=== PATIENT | male | born 1995 | race Caucasian/White ===

== ENCOUNTER 2017-05-06 13:40 | Emergency (ER) | payer OTHER ==
[2017-05-06 14:34] VITALS: BP 117/61
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
== END 2017-05-06 15:30 | disposition home or self-care (01) ==
LOC: UCCORT 13:40
DX: M62.830 Muscle spasm of back (principal)
CPT/HCPCS: 99212; G0463

== ENCOUNTER 2017-10-12 18:18 | Emergency (ER) | payer BC, OTHER ==
[2017-10-12 18:49] VITALS: BP 129/63
[2017-10-12] MEDS ORDERED: cefTRIAXone VIAL(*) 250 MG VIAL IM ONE (19:53)
[2017-10-12] MEDS ORDERED: Azithromycin TAB* 250 MG PO ONE (19:53)
--- NOTE | 2017-10-12 19:55 | ED ---
GI/ HPI - HPI Summary HPI Summary: 21 yr old male who states one of his girlfriends told him that she tested positive for chlamydia. He states that he has not had intercourse with her in about a month. he has no discharge, no dysuria, no testicular or scrotal pain. he feels fine otherwise. He does not want HIV testing. - History of Current Complaint Chief Complaint: UCGeneralIllness Time Seen by Provider: 10/12/17 19:46 Stated Complaint: PERSONAL Pain Intensity: 0 - Allergy/Home Medications Allergies/Adverse Reactions: Allergies Allergy/AdvReac Type Severity Reaction Status Date / Time No Known Allergies Allergy Verified 10/12/17 18:45 Home Medications: Home Medications NK [No Home Medications Reported] 10/12/17 [History Confirmed 10/12/17] PMH/Surg Hx/FS Hx/Imm Hx Endocrine/Hematology History: Denies: Hx Diabetes Cardiovascular History: Denies: Hx Hypertension, Hx Pacemaker/ICD Respiratory History: Denies: Hx Asthma Sensory History: Denies: Hx Hearing Aid Psychiatric History: Denies: Hx Panic Disorder Infectious Disease History: No Infectious Disease History: Denies: Traveled Outside the [place] in Last 30 Days - Family History Known Family History: Positive: None - Social History Occupation: Employed Full-time Alcohol Use: Rare Alcohol Amount: every other day Substance Use Type: Reports: None Smoking Status (MU): Never Smoked Tobacco Review of Systems Constitutional: Negative Positive: other - exposure to STD. Negative: burning, dysuria, discharge, frequency, incontinence, pain, urgency All Other Systems Reviewed And Are Negative: Yes Physical Exam Triage Information Reviewed: Yes Vital Signs On Initial Exam: Initial Vitals Temp Pulse Resp BP Pulse Ox 98.3 F 64 16 129/63 98 10/12/17 18:46 10/12/17 18:46 10/12/17 18:46 10/12/17 18:46 10/12/17 18:46 Vital Signs Reviewed: Yes Appearance: Positive: Well-Appearing, No Pain Distress Skin: Positive: Warm, Skin Color Reflects Adequate Perfusion Head/Face: Positive: Normal Head/Face Inspection Eyes: Positive: EOMI ENT: Positive: Normal ENT inspection Neck: Positive: Nontender Respiratory/Lung Sounds: Positive: Clear to Auscultation, Breath Sounds Present Cardiovascular: Positive: RRR. Negative: Murmur Abdomen Description: Positive: Nontender Male Genital Exam: Positive: normal genitalia. Negative: epididymal tenderness , erythema, inguinal tenderness, lesions, scrotum tenderness (R), scrotum tenderness (L), testicular tenderness (R), testicular tenderness (L), urethral discharge Musculoskeletal: Positive: Strength/ROM Intact Neurological: Positive: Sensory/Motor Intact, Alert, Oriented to Person Place, Time, CN Intact II-III - [place] Coma Scale Best Eye Response: 4 - Spontaneous Best Motor Response: 6 - Obeys Commands Best Verbal Response: 5 - Oriented Coma Scale Total: 15 Diagnostics - Vital Signs Vital Signs Temp Pulse Resp BP Pulse Ox 10/12/17 18:46 98.3 F 64 16 129/63 98 - Laboratory Lab Statement: Any lab studies that have been ordered have been reviewed, and results considered in the medical decision making process. GIGU Course/Dx - Course Course Of Treatment: 21 yr old with exposure to partner with chlamydia. Rx with rocephin and zithromax. - Diagnoses Provider Diagnoses: STD exposure Discharge - Discharge Plan Condition: Good Disposition: HOME Patient Education Materials: Chlamydia (ED), Sexually Transmitted Diseases (ED) , Safe Sex (ED) Referrals: No Primary Care Phys,NOPCP [Primary Care Provider] - [facility] [place]] - 2 Days
[2017-10-12] MEDS ORDERED: Lidocaine 1% MPF* 2 ML VIAL ONE (20:00)
== END 2017-10-12 20:23 | disposition home or self-care (01) ==
LOC: UCCORT 18:18
DX: Z20.2 Contact with and (suspected) exposure to infections with a predominantly sexual mode of transmission (principal)
CPT/HCPCS: 87491; 87591; 96372; 99212; A9270-GY; G0463; J0696

== ENCOUNTER 2019-10-28 21:33 | Emergency (ER) | payer BC ==
[2019-10-28 21:49] VITALS: BP 134/61
[2019-10-28] MEDS ORDERED: Cyclobenzaprine TAB* 10 MG PO ONE (22:03)
--- NOTE | 2019-10-28 22:09 | UC ---
Back Pain HPI - HPI Summary HPI Summary: C/O left sided low back pain. Began more midline lumbar and is now left sided lower thoracic. - History of Current Complaint Chief Complaint: UCBackPain Stated Complaint: LOW BACK PAIN Time Seen by Provider: 10/28/19 21:53 Hx Obtained From: Patient Onset/Duration: Gradual Onset, Lasting Days - 3, Worse Since - onset Timing: Constant Severity Initially: Mild Severity Currently: Severe Pain Intensity: 7 Back Pain: Is Discrete @ - left lower thoracic, upper lumbar paraspinous Character: Dull, Aching, Spasmodic, Stiffness Aggravating Factor(s): Movement, Lifting, Bending Alleviating Factor(s): Position Associated Signs And Symptoms: Negative: Fever, Weakness, Numbness, Tingling, Bladder Incontinence, Bowel Incontinence - Allergies/Home Medications Allergies/Adverse Reactions: Allergies Allergy/AdvReac Type Severity Reaction Status Date / Time No Known Allergies Allergy Verified 10/28/19 21:42 Home Medications: Home Medications Acetaminophen [Tylenol Extra Strength] 1,000 mg PO 10/28/19 [History] Cyclobenzaprine TAB* [Flexeril 10 MG TAB*] 10 mg PO TID PRN #10 tab 10/28/19 [Rx ] Ibuprofen TAB* [Advil TAB*] 400 mg PO Q6H PRN 10/28/19 [History Confirmed ] Naproxen Sodium [Aleve] 440 mg PO DAILY PRN 10/28/19 [History Confirmed 10/28/19 ] PMH/Surg Hx/FS Hx/Imm Hx Previously Healthy: Yes - Surgical History Surgical History: None - Family History Known Family History: Positive: Hypertension - Social History Occupation: Employed Full-time Lives: Alone Alcohol Use: Rare Alcohol Amount: every other day Substance Use Type: None Smoking Status (MU): Never Smoked Tobacco Review of Systems All Other Systems Reviewed And Are Negative: Yes Motor: Positive: Decreased ROM - low back flexion Musculoskeletal: Positive: Myalgia - low back pain. Physical Exam Triage Information Reviewed: Yes Appearance: Well-Appearing, Well-Nourished, Pain Distress Vital Signs: Initial Vital Signs Temp 98 F 10/28/19 21:45 Pulse 79 10/28/19 21:45 Resp 14 10/28/19 21:45 BP 134/61 10/28/19 21:45 Pulse Ox 98 10/28/19 21:45 Vital Signs Reviewed: Yes Eyes: Positive: Conjunctiva Clear Neck exam: Normal Respiratory Exam: Normal Cardiovascular Exam: Normal Musculoskeletal: Positive: ROM Limited @ - thoracic and lumbar spine with decreased flexion and extension. No spinous process tenderness. Tender in the paraspinous muscles in the left lower thoracic upper lumbar region. Neurological Exam: Normal - DTR 2+. Negative SLR Psychological Exam: Normal Skin Exam: Normal Back Pain Course/Dx - Differential Dx/Diagnosis Differential Diagnosis/HQI/PQRI: Cauda Equina Syndrome, Epidural Abscess, Strain , Sprain Provider Diagnosis: Acute low back pain Discharge ED - Sign-Out/Discharge Documenting (check all that apply): Patient Departure All imaging exams completed and their final reports reviewed: No Studies - Discharge Plan Condition: Stable Disposition: HOME Prescriptions: Cyclobenzaprine TAB* [Flexeril 10 MG TAB*] 10 mg PO TID PRN #10 tab PRN Reason: Pain - Moderate Patient Education Materials: Acute Low Back Pain (ED) Referrals: No Primary Care Phys,NOPCP [Primary Care Provider] - Additional Instructions: MUSCLE SPASM: Drink lots of fluits. Vitamin D3 2000iu daily and calcium 1000mg a day. Magnesium 400 or 500mg once or twice a day. Direct massage can be helpful for trigger point release. Using icyhot or [employer]percreme Yoga can be helpful for prevention. [employer] search "beginning yoga for back pain ". [employer] selvin on your smartphone or PC. - Billing Disposition and Condition Condition: STABLE Disposition: Home
== END 2019-10-28 22:16 | disposition home or self-care (01) ==
LOC: UCCORT 21:33
DX: M54.5 Low back pain (principal)
CPT/HCPCS: 99212; A9270-GY; G0463